=== PATIENT | female | born 1955 | race Caucasian/White ===

== ENCOUNTER 2018-05-31 11:41 | Outpatient (REF) | payer MEDICAID, SELFPAY ==
[2018-05-31 21:17] LABS: Cholesterol 249 mg/dL (50-200); HDL Cholesterol 81 mg/dL (40-60); LDL CHOLESTEROL 155 mg/dL (<100); TSH 0.81 uIU/mL (0.358-3.74); Triglyceride 53 mg/dL (30-150)
== END 2018-05-31 11:42 ==
LOC: NCHCN 11:41
PROVIDERS: PCP Internal Medicine; Visit Provider Physician Assistant Medical
DX: Z90.89 Acquired absence of other organs (principal); Z13.220 Encounter for screening for lipoid disorders; Z00.00 Encounter for general adult medical examination without abnormal findings
CPT/HCPCS: 80061; 83721; 84443

== ENCOUNTER 2019-06-14 10:40 | Outpatient (REF) | payer MEDICARE, SELFPAY ==
[2019-06-14 19:19] LABS: Calculated LDL 173 mg/dL; Cholesterol 253 mg/dL (50-200); HDL Cholesterol 69 mg/dL (40-60); TSH 1.23 uIU/mL (0.36-3.74); Triglyceride 58 mg/dL (30-150)
== END 2019-06-14 11:00 ==
LOC: NCHCN 10:40
PROVIDERS: PCP Internal Medicine; Visit Provider Nurse Practitioner Family
DX: E89.0 Postprocedural hypothyroidism (principal); Z13.6 Encounter for screening for cardiovascular disorders
CPT/HCPCS: 80061; 83721; 84443

== ENCOUNTER 2019-12-19 12:44 | Outpatient (REF) | payer MEDICARE, SELFPAY ==
[2019-12-19 21:46] LABS: Glucose 93 mg/dL (74-106); TSH (W/Ref FT4) 0.57 uIU/mL (0.36-3.74)
== END 2019-12-19 13:04 ==
LOC: NCHCN 12:44
PROVIDERS: PCP Internal Medicine; Visit Provider Nurse Practitioner Family
DX: E89.0 Postprocedural hypothyroidism (principal); Z13.6 Encounter for screening for cardiovascular disorders; Z13.1 Encounter for screening for diabetes mellitus
CPT/HCPCS: 82947; 84443

== ENCOUNTER 2020-09-03 11:11 | Outpatient (REF) | payer MEDICARE, SELFPAY ==
[2020-09-03 21:13] LABS: Calculated LDL 140 mg/dL (<100); Cholesterol 229 mg/dL (<200); Glucose 89 mg/dL (74-106); HDL Cholesterol 70 mg/dL (40-60); Triglyceride 98 mg/dL (<150)
== END 2020-09-03 11:31 ==
LOC: NCHCN 11:11
PROVIDERS: PCP Internal Medicine; Visit Provider Nurse Practitioner Family
DX: E78.5 Hyperlipidemia, unspecified (principal); E89.0 Postprocedural hypothyroidism
CPT/HCPCS: 80061; 82947; 84443